=== PATIENT | female | born 1965 | race Caucasian/White ===

== ENCOUNTER → 2019-11-18 | Outpatient (CLI) | payer OTHER ==
--- NOTE | 2019-11-18 12:13 | RAD ---
EXAM: Left knee, 2 views. HISTORY: Swelling and pain. COMPARISON: None. FINDINGS: 2 views of the left knee are obtained. There is mild tricompartmental spurring. There is no fracture, dislocation or subluxation. There is no joint effusion. IMPRESSION: Mild tricompartmental osteoarthritis of the left knee. Electronically signed by: Pauline Carlson MD (11/18/2019 12:10 PM) [id number]
== END | disposition home or self-care (01) ==
LOC: RAD 09:49
PROVIDERS: ATTEND Surgery
DX: M17.12 Unilateral primary osteoarthritis, left knee (principal); M25.461 Effusion, right knee
CPT/HCPCS: 73560